=== PATIENT | female | born 1985 | race African-American/Black ===

== ENCOUNTER 2019-02-18 07:16 | Emergency (ER) | payer MEDICAID ==
[~2019-02-18] VITALS: Ht 157.5 cm; Wt 59.0 kg
--- NOTE | 2019-02-18 07:21 | NUR ---
ED Nurse Note: Pt is not in the waiting room at this time.
--- NOTE | 2019-02-18 07:35 | NUR ---
ED Nurse Note: pt walked in due to asthma attack started 6am, pt stated she has history of asthma and run out of inhaler. pt has appointment for med refill on wednesday. pt denies pain. ermd on bedside. respiratory therapist notified. will continue to monitor.
[2019-02-18 07:37] VITALS: BP 93/64
[2019-02-18] MEDS: Albuterol ud Inhalation HHN SCH ×3 (07:43→08:15)
[2019-02-18] MEDS: Ipratropium 0.02% Inh Soln 2.5ml UD HHN SCH ×3 (07:43→08:15)
--- NOTE | 2019-02-18 07:43 | NUR ---
ED Nurse Note: RT on bedside giving nebulization. po med given as ordered and pt able to tolerate.
--- NOTE | 2019-02-18 08:45 | NUR ---
ED Nurse Note: pt was reassessed and pt stated she feel much better now, pt has no wheezing at the moment.
--- NOTE | 2019-02-18 08:49 | NUR ---
ED Nurse Note: ermd on bedside talking with the pt regarding the dc plan.
[2019-02-18] MEDS ORDERED: PREDNISONE20 MG ORAL (08:50)
[2019-02-18] MEDS ORDERED: ALBUTEROL SULF8.5 GM INH (08:50)
[2019-02-18 08:51] VITALS: BP 100/66
[2019-02-18 08:52] VITALS: BP 100/66
--- NOTE | 2019-02-18 08:52 | NUR ---
ER DISCHARGE NOTE: Patient is cleared to be discharged per ERMD, pt is aox4, on room air, with stable vital signs. pt was given dc and prescription instructions, pt was able to verbalize understanding, pt id band removed without complications. pt is able to ambulate with steady gait. pt took all belongings.
--- NOTE | 2019-02-18 09:10 | Emergency Room Report ---
History of Present Illness General Chief Complaint: Asthma Source: Patient Present Illness HPI 33-year-old female presents ED for evaluation. Complaining of shortness of breath and wheezing for the last few days. History of asthma. States she ran out of her inhaler. Denies cough. Denies fevers or chills. Denies sick contacts or recent travel. No other aggravating or relieving factors. Denies any other associated symptoms Allergies: Coded Allergies: No Known Allergies (Unverified , 02/18/19) Patient History Past Medical History: asthma Past Surgical History: none Pertinent Family History: none Social History: Denies: smoking, alcohol use, drug use Now: No Immunizations: UTD Reviewed Nursing Documentation: PMH: Agreed; PSxH: Agreed Nursing Documentation-PMH Past Medical History: No History, Except For Hx Asthma: Yes Review of Systems All Other Systems: negative except mentioned in HPI Physical Exam Vital Signs Date Time Temp Pulse Resp B/P (MAP) Pulse Ox O2 Delivery O2 Flow Rate FiO2 02/18/19 07:26 98.1 76 20 93/64 (74) 100 Room Air 02/18/19 07:48 21 Sp02 EP Interpretation: reviewed, normal General Appearance: no apparent distress, alert, GCS 15, non-toxic Head: normocephalic Eyes: bilateral eye normal inspection, bilateral eye PERRL ENT: normal ENT inspection Neck: normal inspection Respiratory: decreased breath sounds, wheezing Cardiovascular #1: regular rate, rhythm, no edema Gastrointestinal: normal inspection Rectal: deferred Genitourinary: no CVA tenderness Musculoskeletal: normal inspection Neurologic: alert, oriented x3, responsive, motor strength/tone normal, sensory intact, speech normal Psychiatric: normal inspection Skin: normal color Lymphatic: normal inspection Medical Decision Making Diagnostic Impression: Primary Impression: Asthma Qualified Codes: J45.20 - Mild intermittent asthma, uncomplicated ER Course Hospital Course 33 yo F presents with wheezing. h/o asthma Differential diagnoses include: URI, bronchitis, asthma/COPD, pneumonia Clinical course Patient placed on stretcher. After initial history, physical exam reveals a female in mild distress. Bilateral TM unremarkable. No pharyngeal erythema. No tonsillar exudates. No lymphadenopathy. reduced breath sounds bilaterally. wheezing noted. Patient given Prednisone and albuterol treatment in ED with symptoms improved. Reassurance given discussed Findings with patient. Safe for discharge for close outpatient follow -up. Will provide referrals Diagnosis - asthma exacerbation Stable and discharged home with prescriptions for prednisone, albuterol. Instructed to followup with PMD. Return to ED if symptoms recur or worsen Last Vital Signs Date Time Temp Pulse Resp B/P (MAP) Pulse Ox O2 Delivery O2 Flow Rate FiO2 02/18/19 08:52 98.1 74 16 100/66 99 Room Air 21 Status: improved Disposition: HOME, SELF-CARE Condition: Stable Scripts Prednisone* (PREDNISONE*) 20 Mg Tablet 40 MG ORAL DAILY, #10 TAB Prov: Willie Conde MD 02/18/19 Albuterol Sulfate* (ALBUTEROL SULFATE MDI*) 8.5 Gm Hfa.aer.ad 2 PUFF INH Q6H, #1 EA 0 Refills Prov: Willie Conde MD 02/18/19 Referrals: [facility] Patient Instructions: Asthma, Adult Willie Conde MD Feb 18, 2019 09:10
== END 2019-02-18 08:52 | disposition home or self-care (01) ==
LOC: EMR 07:35
DX: J45.20 Mild intermittent asthma, uncomplicated (principal)
CPT/HCPCS: 94644; 99282; J7512